=== PATIENT | male | born 1955 | race Caucasian/White ===

== ENCOUNTER 2021-05-24 08:48 | Emergency (ER) | payer OTHER ==
[~2021-05-24] VITALS: Ht 162.6 cm; Wt 117.9 kg
[2021-05-24] MEDS ORDERED: PRILOSEC OTC20 MG PO (09:10)
[2021-05-24] MEDS ORDERED: ATIVAN1 M1 PO (09:10)
[2021-05-24] MEDS ORDERED: APRESOLINE 10MG10 MG (09:10)
[2021-05-24] MEDS ORDERED: RAYOS1 MG (09:10)
== END 2021-05-24 14:21 | disposition home or self-care (01) ==
LOC: ER 08:48 → CPU-OBS 09:27 → ER 09:27
DX: R07.89 Other chest pain (principal); E66.8 Other obesity; F06.4 Anxiety disorder due to known physiological condition; I16.1 Hypertensive emergency; Z20.822 Contact with and (suspected) exposure to COVID-19; I25.10 Atherosclerotic heart disease of native coronary artery without angina pectoris; F13.239 Sedative, hypnotic or anxiolytic dependence with withdrawal, unspecified